=== PATIENT | male | born 1965 | race African-American/Black ===

== ENCOUNTER 2018-12-20 06:44 | Emergency (ER) | payer MEDICAID ==
[~2018-12-20] VITALS: Ht 177.8 cm; Wt 136.0 kg
[~2018-12-20 06:44] MED LIST: ALLO100T PO; ATOR40TA70 PO; AZIT1PAC10 PO; CARV25TA47 PO; FLUT1DIS3 INH; FURO40TA5 PO; GABA-290 PO; GLIP5TAB12 PO; LISI-604 PO; METF-414 PO; METF500T7 PO; MONT10TA24 PO; OXYB15TA9 PO; P20 PO; POTA10TA15 PO; SIMV10TA6 PO
[2018-12-20] MEDS ORDERED: METHYLPREDNISOLONE SOD SUCC 125 MG/2 ML VIAL IV STA (06:49)
[2018-12-20] MEDS ORDERED: IPRATROPIUM/ALBUTEROL 0.5-3(2.5)MG/3ML NEB HHN ONE ×2 (07:00→12:00)
[2018-12-20] MEDS ORDERED: LEVOFLOXACIN 750MG PREMIX 150 ML IV ONE (07:00)
[2018-12-20] MEDS ORDERED: ASPIRIN 81MG TABLET PO ONE (07:00)
[2018-12-20 07:29] LABS: HEMATOCRIT. 44.1 % (42.0-52.0); HEMOGLOBIN. 14.2 g/dL (14.0-18.0); MEAN CORPUSCULAR HEMOGLOBIN 28.8 pg (28.0-32.0); MEAN CORPUSCULAR VOLUME 89.2 fL (80.0-94.0); MEAN PLATELET VOLUME 7.5 fl (7.4-10.4); PLATELET 233 x1000/uL (130-400); RED BLOOD CELL COUNT 4.94 mill/uL (4.7-6.1); RED CELL DISTRIBUTION WIDTH 14.8 % (11.6-14.6)
[2018-12-20 07:35] LABS: CHLORIDE 106 mEq/L (98-107)
[2018-12-20 07:38] LABS: INR 1.1; PARTIAL THROMBOPLASTIN TIME 28.2 sec (23.4-31.0); PROTHROMBIN TIME 10.7 sec (9.1-11.1)
[2018-12-20 07:39] LABS: ETHANOL BLOOD < 10 mg/dL
[2018-12-20 08:28] LABS: BG BASE EXCESS -1.2 mmol/L (-2.0-2.0); BG BILEVEL POS AIRWAY PRESSURE 15/5; BG CARBOXYHEMOGLOBIN 2.1 % (0.5-1.5); BG METHEMOGLOBIN 0.4 % (0.0-1.5); BG OXYGEN SATURATION 95.9 % (92.0-98.5); BG OXYHEMOGLOBIN 93.5 % (94.0-97.0); BG PCO2 53.6 mmHg (35.0-45.0); BG PH 7.304 (7.350-7.450); BG PO2 87.5 mmHg (75.0-100.0); BG SAMPLE SITE LEFT RADIAL; BG TOTAL HEMOGLOBIN 14.9 g/dL (12.0-18.0); BG VENT MODE MASK - BIPAP; BG VENT RATE 18 set
[2018-12-20 08:36] LABS: PLATELET ESTIMATE NORMAL
[2018-12-20] MEDS ORDERED: ONDANSETRON HCL 4MG/2ML INJ IV PRN (10:30)
[2018-12-20] MEDS ORDERED: MAGNESIUM/ALUMINUM HYDROXIDE/SIMETHICONE 30ML UDC PO PRN (10:30)
[2018-12-20] MEDS ORDERED: NITROGLYCERIN 0.4MG TABLET SL SL PRN (10:30)
[2018-12-20] MEDS ORDERED: GUAIFENESIN 200MG/10ML SUGAR FREE UDC PO PRN (10:30)
[2018-12-20] MEDS ORDERED: ENOXAPARIN 40MG/0.4ML SYR SUBCUT SCH (10:30)
[2018-12-20] MEDS ORDERED: CLONIDINE 0.1MG TABLET PO PRN (10:30)
[2018-12-20] MEDS ORDERED: GUAIFENESIN/DM 600MG/30MG ER TAB 12HR PO SCH (10:30)
[2018-12-20] MEDS ORDERED: LORAZEPAM 0.5MG TABLET PO PRN (10:30)
[2018-12-20] MEDS ORDERED: DIPHENHYDRAMINE 50MG/ML VIAL IV PRN (10:30)
[2018-12-20] MEDS ORDERED: ACETAMINOPHEN 325MG TABLET PO PRN (10:30)
[2018-12-20] MEDS ORDERED: DOCUSATE SODIUM 100MG CAPSULE PO PRN (10:30)
[2018-12-20] MEDS ORDERED: IPRATROPIUM/ALBUTEROL 0.5-3(2.5)MG/3ML NEB INH PRN (10:30)
[2018-12-20] MEDS ORDERED: ZOLPIDEM TARTRATE 5MG TABLET PO PRN (10:30)
[2018-12-20] MEDS ORDERED: IPRATROPIUM/ALBUTEROL 0.5-3(2.5)MG/3ML NEB HHN SCH (10:30)
[2018-12-20] MEDS ORDERED: DEXTROSE 50% WATER 50ML SYRINGE IV PRN (10:30)
[2018-12-20 11:00] VITALS: BP 119/69
[2018-12-20] MEDS ORDERED: BLOOD SUGAR DIAGNOSTIC STRIP TEST SCH (13:00)
[2018-12-20] MEDS ORDERED: INSULIN LISPRO 100 UNITS/ML SUBCUT SCH (13:20)
[2018-12-20] MEDS ORDERED: METHYLPREDNISOLONE SOD SUCC 125 MG/2 ML VIAL IV SCH (14:00)
[2018-12-20] MEDS ORDERED: NA PHOS,M-B/NA PHOS,DI-BA ENEMA 118ML PR PRN (16:30)
[2018-12-20] MEDS ORDERED: KETOROLAC 15MG/ML VIAL IV PRN (16:32)
[2018-12-20] MEDS ORDERED: CARVEDILOL 3.125 MG TABLET PO SCH (18:00)
[2018-12-20] MEDS ORDERED: FUROSEMIDE 40MG/4ML VIAL IVP SCH (21:00)
[2018-12-20] MEDS ORDERED: FAMOTIDINE 20MG TABLET PO SCH (21:00)
[2018-12-20] MEDS ORDERED: LISINOPRIL 20MG TABLET PO SCH (21:00)
[2018-12-20] MEDS ORDERED: INSULIN GLARGINE UD 100 UNITS/ML SYR SUBCUT SCH (22:00)
[2018-12-21] MEDS ORDERED: ASPIRIN 325MG EC TABLET PO SCH (09:00)
== END 2018-12-20 13:40 | disposition left against medical advice (07) ==
LOC: ER 06:44 → EDBEDREQSVC 09:25 → EDBEDREQ 09:25 → ER 13:40 → CANBEDREQ 16:59
DX: J96.90 Respiratory failure, unspecified, unspecified whether with hypoxia or hypercapnia (principal); I11.0 Hypertensive heart disease with heart failure; I50.9 Heart failure, unspecified; J44.9 Chronic obstructive pulmonary disease, unspecified; E11.9 Type 2 diabetes mellitus without complications; Z87.891 Personal history of nicotine dependence; Z79.899 Other long term (current) drug therapy
CPT/HCPCS: 36415; 36600; 71045; 80053; 80061; 82375; 82805; 83036; 83605; 83880; 84484; 85025; 85610; 85730; 87040; 93005; 93970; 94640; 94660; 96365; 96366; 96375; 99291; J1956; J2930; J7620; Z7610; 80305